=== PATIENT | female | born 1975 | race Hispanic/Latino ===

== ENCOUNTER 2024-03-21 16:46 | Emergency (ER) | payer MEDICAID, OTHER ==
[~2024-03-21] VITALS: Ht 167.6 cm; Wt 72.6 kg
--- NOTE | 2024-03-21 17:12 | ERN ---
General Stated Complaint: CANT Time Seen by MD: 16:47 Source: patient, family History of Present Illness Initial Comments Patient is a 48-year-old female coming in to be evaluated for sore throat. Patient was diagnosed with strep pharyngitis one ER visit and then was diagnosed with mono on the 2nd visit. Per patient symptoms have been worsening so she was here for further evaluation. Allergies: Coded Allergies: No Known Drug Allergies (Verified Allergy, 09/11/11) ROS Dictation CONSTITUTIONAL: No chills, no fever, no weakness, no diaphoresis, no malaise. HEAD/FACE: No signs of trauma. EENT: No eye pain, no blurred vision, no tearing, no double vision, no ear pain, no ear discharge, no nose pain, no nasal congestion, throat pain, no throat swelling, no mouth pain. RESPIRATORY: No cough, no orthopnea, no SOB, no stridor, no wheezing. CARDIOVASCULAR: No chest pain, no edema, no palpitations, no syncope. GASTROINTESTINAL/ABDOMINAL: No abdominal pain, no constipation, no diarrhea, no nausea, no vomiting. GENITOURINARY: No abnormal discharge, no dysuria, no frequent urination, no hematuria. No complaints of pain in the genitals. MUSCULOSKELETAL: No back pain, no gout, no joint pain, no joint swelling, no muscle pain, no muscle stiffness, no neck pain. INTEGUMENTARY: No change in color, no change in hair/nails, no dryness, no lesion, no lumps, no rash. NEUROLOGICAL/PSYCH: No anxiety, not depressed, no emotional problem, no headache, no numbness, no pre-existing deficit, no history of seizures, no tremors, no weakness. HEMATOLOGIC/LYMPHATIC: Not anemic, no history of blood clots, no apparent bleeding, no bruising, glands not swollen. All Systems Negative, Except as Noted. Physical Exam Physical Exam Dictation VITAL SIGNS: Reviewed. GENERAL APPEARANCE: Alert, oriented x3, no acute distress, obese. HEAD AND FACE: Non-traumatic. EYES: PERRL, pink conjunctivas, eyelid no trauma, anterior chamber clear. EARS: Pinnas intact and no signs of trauma or erythema. Ear canals clear and no discharge. TMs no erythema. NOSE: No discharge, no bleeding. OROPHARYNX: Mouth normal, teeth no caries, tongue pink. Pharynx erythema. Tonsils exudates, no abscesses noted. Mucous membrane moist. NECK: Supple, non-tender, no thyromegaly, no masses, no JVD, no bruits. BREAST: Deferred. CHEST: No tenderness, no crepitus, no paradoxical movement, no retractions. LUNGS: Clear, well-ventilated, symmetric, no rales, no wheezing, no rhonchi, no stridor, good breath sounds bilaterally. HEART: Regular rate, regular rhythm, no murmur, no gallops. VASCULAR: No peripheral edema. ABDOMEN: Soft, positive bowel sounds, nondistended, no guarding, nontender, no rebound, no masses no hepatomegaly, no splenomegaly, no Nieto's sign, no hernias. RECTAL: Deferred. GENITAL: Deferred. NEUROLOGICAL: Normal speech, gross motor function intact, gross sensory function intact. MUSCULOSKELETAL: Neck nontender, full range of motion, back nontender, full r ajith of motion. EXTREMITIES: Nontender, full range of motion. SKIN: Color pink, dry, no turgor, no rash, no lacerations, no abrasions, no contusions. LYMPHATICS: Deferred. Results Laboratory and Microbiology Lab and Micro Result Laboratory Tests Test 03/21/24 17:13 White Blood Count 14.4 K/uL (4.8-10.8) H Red Blood Count 4.67 MIL/uL (4.00-5.50) Hemoglobin 13.6 g/dL (12.0-16.0) Hematocrit 39.5 % (36-48) Mean Corpuscular Volume 84.6 fL (79-99) Mean Corpuscular Hemoglobin 29.1 pg (27.0-33.0) Mean Corpuscular Hemoglobin Concent 34.4 g/dL (32.0-36.0) Red Cell Distribution Width 11.9 % (11.0-15.5) Platelet Count 337 K/uL (130-400) Mean Platelet Volume 8.9 fL (7.5-10.5) Immature Granulocyte % (Auto) 0.4 % (0-1) Neutrophils (%) (Auto) 79.0 % (40.0-77.0) H Lymphocytes (%) (Auto) 11.8 % (21.0-51.0) L Monocytes (%) (Auto) 8.4 % (3.0-13.0) Eosinophils (%) (Auto) 0.2 % (0.0-8.0) Basophils (%) (Auto) 0.2 % (0.0-5.0) Neutrophils # (Auto) 11.3 K/uL (1.8-7.7) H Lymphocytes # (Auto) 1.7 K/uL (1.0-4.8) Monocytes # (Auto) 1.2 K/uL (0.1-1.0) H Eosinophils # (Auto) 0.03 K/uL (0.00-0.70) Basophils # (Auto) 0.03 K/uL (0.00-0.20) Absolute Immature Granulocyte (auto 0.06 K/uL (0-1) Nucleated Red Blood Cells 0.0 % (0.0-0.19) Sodium Level 136 mmol/L (136-145) Potassium Level 3.7 mmol/L (3.5-5.1) Chloride Level 102 mmol/L (101-111) Carbon Dioxide Level 28 mmol/L (21-32) Blood Urea Nitrogen 15 mg/dL (7-18) Creatinine 0.9 mg/dL (0.5-1.0) Glomerular Filtration Rate Calc 80 mL/min (>90) Random Glucose 95 mg/dL (70-105) Total Calcium 8.8 mg/dL (8.5-10.1) Serum Test, Qualitative NEGATIVE (NEGATIVE) Labs Reviewed?: Yes EKG/XRAY/US/CT/MRI CT Scan Comment PATIENT: CULLEN HORTON MR#: [id number] : 1975 SEX: F AGE: 48 LOCATION: [facility] ORDER 02 STATUS: REG REPORT#: [id number] SERVICE 01 REASON: DYSPHAGIA ORDERING PHYSICIAN: BRIDGETTE FOLEY MD PROCEDURE: NKSOFTI WO - CT NECK SOFT TISS W/O CONTRAST CT NECK SOFT TISS W/O CONTRAST HISTORY: Dysphagia COMPARISON: None TECHNIQUE: Multiple sequential axial images of the soft tissue neck were obtained. Patient was not given contrast through intravenous route. FINDINGS: There is enlargement right parapharyngeal soft tissues suggestive of tonsillitis. There may be peritonsillar abscess and clinical correlation is recommended. Visualized portion of brain parenchyma within the posterior fossa is within normal limits. Parapharyngeal fat planes are preserved bilaterally. Parotid glands and submandibular glands are grossly within normal limits. There are borderline in size cervical lymph nodes. The airway is patent. Visualized portion of the lung apices are unremarkable. IMPRESSION: 1. There is enlargement right parapharyngeal soft tissues suggestive of tonsillitis. There may be peritonsillar abscess and clinical correlation is recommended. CT was performed with one or more following dose reduction techniques: automated exposure control, adjustment of the mA and kv according to patient's size, or use of a iterative reconstruction technique. DICTATED BY: ROBE RODRIGUEZ MD DATE: 03/21/242005 ELECTRONICALLY SIGNED BY: ROBE RODRIGUEZ MD DATE: 03/21/242015 MDM MDM: DIFFERENTIAL DIAGNOSIS: RATIONALE: TESTS CONSIDERED AND ORDERED SECONDARY TO SHARED DECISION MAKING INCL UDE: PREVIOUS OUTSIDE RECORDS REVIEWED: OLD ER VISITS. RISK OF COMPLICATION AND/OR MORBIDITY OR MORTALITY OF PATIENT MANAGEMENT: NONE MEDICATIONS-PER MEDICATION RECONCILIATION NEED FOR HOSPITALIZATION: PATIENT DOES NOT MEET CRITERIA FOR HOSPITALIZATION. NEED FOR EMERGENCY MAJOR/MINOR SURGERY: NO THERE ARE NO SOCIAL CONCERNS WITH THIS PATIENT. PRESCRIPTION DRUG MANAGEMENT PRESCRIPTIONS WILL INCLUDE SYMPTOMATIC CARE PATIENT'S PRIOR EXTERNAL MEDICAL RECORDS FROM OTHER ER VISITS WERE REVIEWED BY ME INDICATED. PRIOR TESTING AND RESULTS FROM PREVIOUS VISITS WERE REVIEWED. PRIOR TESTS WERE TAKEN INTO ACCOUNT WITH MEDICAL DECISION MAKING AND RESOURCE UTILIZATION, INDEPENDENT HISTORIAN/HISTORIANS WERE USED TO OBTAIN COMPLETE MEDICAL HISTORY. I INDEPENDENTLY INTERPRETED THE TEST THAT WERE PERFORMED, RESULTS WERE REVIEWED BY ME AND CONSIDERED FINDINGS ON RADIOLOGY IF ORDERED. MEDICAL MANAGEMENT AND EXAMINATION INTERPRETATION DISCUSSIONS WERE HAD BY ME WITH OTHER QUALIFIED HEALTHCARE PROFESSIONALS INDICATED FOR THE PATIENT'S CARE. ED Course Orders Procedure Category Date Status Time Cbc With Differential LAB 03/21/24 Complete 16:52 Basic Metabolic Panel LAB 03/21/24 Complete 16:52 Acetaminophen-Codeine PHA 03/21/24 Complete Elixer (Tylenol-Co 16:52 Testing, LAB 03/21/24 Complete Serum Hcg 18:37 Ceftriaxone 1g Vial PHA 03/21/24 Complete (Rocephine 1g Inj) 19:30 Methylprednisolone PHA 03/21/24 Complete Succ 125mg (Solu-Medr 19:30 Ct Neck Soft Tiss W/O CT 03/21/24 Resulted Contrast 19:02 Clindamycin Ivpb PHA 03/21/24 Complete 600mg/50ml (Cleocin 21:00 Current Medications Medications (Trade) Dose Ordered Sig/Ernie Route PRN Reason Start Time Stop Time Status Last Admin Dose Admin Acetaminophen/ Codeine Phosphate (TYLenol-coDEINE (120/12MG 5ML) ELIXIR) 10 ml STAT STAT PO 03/21/24 16:52 03/21/24 16:53 DC 03/21/24 18:24 Ceftriaxone Sodium (ROCEphine 1G INJ) 1 gm ONCE ONCE IVPB 03/21/24 19:30 03/21/24 19:31 DC 03/21/24 19:17 Clindamycin HCl/ Dextrose 50 ml @ 100 mls/hr Q8H IV 03/21/24 21:00 03/22/24 00:35 DC 03/21/24 20:59 Methylprednisolone Sodium Succinate (Solu-medROL 125MG) 125 mg ONCE ONCE IVP 03/21/24 19:30 03/21/24 19:31 DC 03/21/24 19:17 Vital Signs Date Time Temp Pulse Resp B/P (MAP) Pulse Ox O2 Delivery O2 Flow Rate FiO2 03/22/24 00:19 84 18 119/69 98 Room Air* 0 03/21/24 22:58 98.8 88 20 118/65 98 Room Air* 0 03/21/24 22:05 98.1 96 18 127/70 98 Room Air* 0 03/21/24 21:04 99.0 97 20 123/73 98 Room Air* 0 03/21/24 17:50 99.3 100 16 129/68 98 Room Air 0 7:00 p.m. patient was signed out to me by a.m. physician. This is a 48-year-old female who has had sore throat going on for a long time and she has been to the emergency rooms multiple times initially was told she had strep pharyngitis and was treated with antibiotics she was recently seen at [facility] where she was told she had a mono infection. She continues to have persistent symptoms of sore throat change in the voice but no stridor and came into this ER for further evaluation labs revealed leukocytosis CT of the soft tissues of the neck was pending at the time of sign-out CT soft tissues of the neck showed tonsillitis and peritonsillar abscess on the right. I had a discussion with patient and her spouse and updated them on CT findings and need for transfer for specialist services. IV fluids and antibiotics will be continued here until then As there is no availability of ENT services here initiated transfer to [facility]. I spoke with ED physician Dr. gilmore who accepted the patient in transfer-ED to ED transfer . Transportation arrangements were made to transport patient to [facility] emergency room DX & DISP Disposition: Transfer Departure Impression: Primary Impression: Tonsillitis Additional Impression: Peritonsillar abscess Condition: Stable Additional Instructions: The patient has been informed about all the diagnostic tests and procedures carried out in the emergency room today and has confirmed understanding of the results. Patient will be transferred to a facility that provides a higher level of care since such services are not accessible locally or within our immediate community. The patient is alert oriented and not experiencing any acute distress. There are no signs of sepsis and patient's hemodynamic status is stable at the moment. Medically, the patient is considered stable for transfer Referrals: SELF,REFERRAL (PCP) BRIDGETTE OFLEY MD Mar 21, 2024 17:12 TEMO CLAYTON MD Mar 21, 2024 20:34
[2024-03-21 17:19] LABS: BASOPHILS # (AUTO) 0.03 K/uL (0.00-0.20); BASOPHILS % (AUTO) 0.2 % (0.0-5.0); EOSINOPHILS # (AUTO) 0.03 K/uL (0.00-0.70); EOSINOPHILS % (AUTO) 0.2 % (0.0-8.0); HEMATOCRIT 39.5 % (36-48); IMMATURE GRANULOCYTE ABSOLUTE 0.06 K/uL (0-1); LYMPHOCYTES # (AUTO) 1.7 K/uL (1.0-4.8); LYMPHOCYTES % (AUTO) 11.8 % (21.0-51.0); MEAN CORPUSCULAR HEMOGLOBIN 29.1 pg (27.0-33.0); MEAN CORPUSCULAR HGB CONC 34.4 g/dL (32.0-36.0); MEAN CORPUSCULAR VOLUME 84.6 fL (79-99); MONOCYTES # (AUTO) 1.2 K/uL (0.1-1.0); MONOCYTES % (AUTO) 8.4 % (3.0-13.0); NEUTROPHILS # (AUTO) 11.3 K/uL (1.8-7.7); PLATELET COUNT (AUTO) 337 K/uL (130-400); RED BLOOD CELL COUNT(AUTO) 4.67 MIL/uL (4.00-5.50); RED CELL DISTRIBUTION WIDTH 11.9 % (11.0-15.5); WHITE BLOOD COUNT (AUTO) 14.4 K/uL (4.8-10.8)
[2024-03-21 17:27] LABS: CREATININE 0.9 mg/dL (0.5-1.0); POTASSIUM 3.7 mmol/L (3.5-5.1)
[2024-03-21] MEDS: acetaMINOPHEN/coDEINE 120/12MG 5ML PO STA (18:24)
--- NOTE | 2024-03-21 19:16 | NUR ---
PT CARE ASSUMED AT THIS TIME
[2024-03-21] MEDS: cefTRIAXone 1G VIAL IVPB ONE (19:17)
[2024-03-21] MEDS: Solu-medROL 125MG VIAL IVP ONE (19:17)
--- NOTE | 2024-03-21 20:16 | HMCIMG ---
CT NECK SOFT TISS W/O CONTRAST HISTORY: Dysphagia COMPARISON: None TECHNIQUE: Multiple sequential axial images of the soft tissue neck were obtained. Patient was not given contrast through intravenous route. FINDINGS: There is enlargement right parapharyngeal soft tissues suggestive of tonsillitis. There may be peritonsillar abscess and clinical correlation is recommended. Visualized portion of brain parenchyma within the posterior fossa is within normal limits. Parapharyngeal fat planes are preserved bilaterally. Parotid glands and submandibular glands are grossly within normal limits. There are borderline in size cervical lymph nodes. The airway is patent. Visualized portion of the lung apices are unremarkable. IMPRESSION: 1. There is enlargement right parapharyngeal soft tissues suggestive of tonsillitis. There may be peritonsillar abscess and clinical correlation is recommended. CT was performed with one or more following dose reduction techniques: automated exposure control, adjustment of the mA and kv according to patient's size, or use of a iterative reconstruction technique.
[2024-03-21] MEDS: CLINDAMYCIN IVPB 600MG/50ML 50 ML IV SCH (20:59)
--- NOTE | 2024-03-21 20:59 | NUR ---
SENIOR ADMINISTRATIVE ASSOCIATE NOTIFIED OF NEED TO TRANSFER FOR ENT
--- NOTE | 2024-03-21 21:07 | NUR ---
ASSUMED CARE FROM PATIENT AT THIS TIME.
--- NOTE | 2024-03-21 21:11 | NUR ---
TRANSFER CALL PLACED TO [facility] [employer] [facility] TO INITIATE TRANSFER FOR ENT SERVICES
[2024-03-21 22:58] VITALS: TEMP 98.8
--- NOTE | 2024-03-21 23:50 | NUR ---
TRANSFER PT. WAS ACCEPTED BY SP SHEPPARD MD @ [id number] [facility]. BED ASSIGNMENT AT THIS TIME IS ER. REPORT: [id number]
--- NOTE | 2024-03-22 00:07 | NUR ---
[facility] CALLED FOR TRANSPORT
[2024-03-22 00:19] VITALS: BP 119/69; PULSE 84; RESP 18; O2SAT 98
--- NOTE | 2024-03-22 00:28 | NUR ---
ATTEMPTING TO CALL REPORT AT THIS TIME TO [facility]. PLACED ON HOLD.
--- NOTE | 2024-03-22 00:34 | NUR ---
REPORT GIVEN TO [facility] AT THIS TIME.
== END 2024-03-22 00:35 | disposition short-term general hospital (02) ==
LOC: EDH 16:46
DX: J36 Peritonsillar abscess (principal)
CPT/HCPCS: 99285; 96365; 70490; 96367; 96375; 80048; 84703; 85025; 36415; J2919; J0696; J3490